=== PATIENT | female | born 2000 | race African-American/Black ===

== ENCOUNTER 2020-08-02 13:18 | Emergency (ER) | payer OTHER, SELFPAY ==
[2020-08-02] VITALS (15 sets, daily range): BP systolic 108–135; BP diastolic 60–107; PULSE 65–88; RESP 8–24; TEMP 36.9; O2SAT 98–100
--- NOTE | ~2020-08-02 | XR_ITS ---
EXAMINATION: XR chest 1V portable 08/02/2020 14:56 INDICATION: Right-sided chest pain PROCEDURE: AP portable chest COMPARISON: No prior studies for comparison. FINDINGS: The lungs are clear. The cardiomediastinal silhouette is within normal limits. There are no pleural effusions. There is no pneumothorax suspected. IMPRESSION: 1: NO ACUTE CARDIOPULMONARY DISEASE. Reviewed, dictated and finalized at location B.
--- NOTE | 2020-08-02 14:00 | ECG_ITS ---
Measurements Intervals [place] Rate: 68 P: 47 TN: 135 QRS: 74 QRSD: 81 T: 54 QT: 399 QTc: 426 Interpretive Statements SINUS RHYTHM WITH SINUS ARRHYTHMIA NORMAL ECG Electronically Signed On 08-02-2020 14:28:51 CDT by Senthil Herron D.O.
[2020-08-02 14:30] LABS: Basophils Percent Auto 0.8 % (0.2-1.2); Eosinophils Percent Auto 0.6 % (0-4.4); Hematocrit 42.4 % (37.0-47.0); Hemoglobin 14.1 g/dL (12.0-15.0); Immature Granulocyte Absolute 0.01 K/mm3 (0.00-0.031); Immature Granulocyte Percent A 0.2 % (0-0.5); Lymphocytes Percent Auto 36.7 % (18.3-44.2); Mean Corpuscular HGB Conc 33.3 g/dl (32-36); Mean Corpuscular Hemoglobin 29.2 pg (26-34); Mean Corpuscular Volume 87.8 fl (80-100); Mean Platelet Volume 10.5 fl (7.4-10.4); Monocytes Absolute Auto 0.3 K/mm3 (0.1-0.6); Monocytes Percent Auto 6.9 % (2.6-8.5); Neutrophils Absolute Auto 2.7 K/mm3 (1.3-6.7); Neutrophils Percent Auto 54.8 % (45.5-73.1); Platelet Count Result 218 k/mm3 (150-375); Red Blood Count 4.83 M/mm3 (4.2-5.4); White Blood Count 4.9 K/mm3 (4.5-10.0)
[2020-08-02 14:38] LABS: Add Urine Microscopic? YES; Appearance Urine Clear (Clear); Bacteria Urine Trace /hpf; Bilirubin Urine Negative (Negative); Blood Urine Negative (Negative); Color Urine Yellow (Yellow); Glucose Urine UA Negative (Negative); Ketones Urine Negative (Negative); Leukocyte Esterase Ur Negative LEU/UL (Negative); Mucus Urine Heavy /lpf; Nitrate Urine Negative (Negative); Protein Urine 1+ mg/dL (Negative); RBC Urine 0-2 /hpf (0-2); Specific Grav Ur 1.025 (1.001-1.035); Squamous Epithelial Cell Urine Rare /hpf (Few); WBC Urine 0-3 /hpf
--- NOTE | 2020-08-02 14:41 | ED.GENADULT ---
HPI - General Adult General Chief complaint: Chest Pain Stated complaint: CP X1WK, LUMP ON NECK Time Seen by Provider: 08/02/20 13:24 Source: patient Mode of arrival: ambulatory Limitations: no limitations History of Present Illness HPI narrative: Patient presents with chief complaint of pain to right anterior chest that worsens when working, after eating and with movement for 1 week. Patient states at times it feels that the pain radiates across the midabdomen her entire chest diffusely. Patient denies sharp pain directly over her large mouth or any radiation down her left arm or into her jaw. Patient states that she was seen on campus and was prescribed omeprazole as a doubt that her symptoms may be GERD related because at times she does feel some reflux-like symptoms. Patient states that she does perform a job that requires her to do some lifting and forearm activities. Patient denies changes in vision or hearing, headache, nausea, vomiting, diarrhea, shortness of breath. Patient also reports that she has a swelling to the right side of her neck that is tender. Related Data Home Medications Medication Instructions Recorded Confirmed omeprazole 20 mg PO DAILY 08/02/20 Allergies Allergy/AdvReac Type Severity Reaction Status Date / Time No Known Allergies Allergy Verified 08/02/20 13:39 Review of Systems Review of Systems: Narrative: CONSTITUTIONAL: Denies fever, chills, or sweats. EYES: Denies visual changes, redness, or discharge. ENT: Denies rhinorrhea, congestion, sore throat, or otalgia. CARDIOVASCULAR: Reports chest wall discomfort denies palpitations, or edema. RESPIRATORY: Denies cough or dyspnea. GASTROINTESTINAL: Denies abdominal pain, nausea, vomiting, or diarrhea. GENITOURINARY: Denies dysuria or hematuria. SKIN: Denies rash or itching. MUSCULOSKELETAL: Denies back pain, joint pain, or myalgia. NEUROLOGIC: Denies headache, numbness, dizziness, or weakness. PSYCHIATRIC: Denies anxiety or depression. [facility] Past Medical History Medical History (Updated 08/02/20 @ 16:05 by Marietta Farmer PA-C) No active medical problems Social History Social History Gender identity (if verbalized by the patient): Female Exam Narrative: Exam Narrative: GENERAL: Well-appearing, well-nourished, and in no acute distress. HEAD: Normocephalic, atraumatic. EYES: PERRLA and EOMI. ENT: Nares clear, no rhinorrhea or epistaxis. Mucous membranes moist. Oropharynx without tonsillar hypertrophy exudate or other lesions. Bilateral TMs pearly chacon nonbulging NECK: Supple. Sized right-sided posterior cervical lymph node that is mobile and tender to palpation. No carotid bruits or JVD CHEST: Pain reproducible with palpation of patient's pectoral muscles. Clear to auscultation. No respiratory distress. No wheezes rales or rhonchi HEART: Regular rate and rhythm. No murmur heard. Normal peripheral pulses. ABDOMEN: Soft, nontender, nondistended, normal active bowel sounds. EXTREMITIES: Normal range of motion. No edema. SKIN: Warm, dry, no rash. NEURO: No focal deficits. Alert and oriented x3. PSYCH: Normal mood and affect. Course Vital Signs Vital signs: Vital Signs Temperature 98.5 F 08/02/20 13:29 Pulse Rate 79 08/02/20 13:29 Respiratory Rate 16 08/02/20 13:29 Blood Pressure 108/60 08/02/20 13:29 Pulse Oximetry 100 08/02/20 13:29 Temperature 98.5 F 08/02/20 13:29 Pulse Rate 68 08/02/20 15:16 Respiratory Rate 13 08/02/20 15:16 Blood Pressure 118/71 08/02/20 15:15 Pulse Oximetry 100 08/02/20 15:12 Medical Decision Making MDM Narrative Medical decision making narrative: Patient is resting comfortably in the bed. Her vitals are stable. Her discomfort has resolved with Toradol. Patient will be prescribed naproxen. Patient's pain is likely musculoskeletal as it can be reproduced with palpation of the pectoral muscles. Patient instructed to follow-up with her primary care for roger
[2020-08-02 14:43] LABS: Alanine Aminotransferase 8 U/L (4-35); Albumin Level 4.5 g/dL (3.7-5.6); Alkaline Phosphatase 77 U/L (45-116); Anion Gap 8 mmol/L (8-16); Aspartate Amino Transferase 22 U/L (14-36); Bilirubin,Total 0.9 mg/dL (0.2-1.3); Blood Urea Nitrogen 9 mg/dL (8-21); Calcium 9.6 mg/dL (8.9-10.7); Carbon Dioxide 28 mmol/L (22-30); Chloride 103 mmol/L (98-107); Estimated CRCL calculation 83 ml/min; Estimated Glomerular Filt Rate > 60; Glucose 88 mg/dL (65-105); Sodium 139 mmol/L (134-143)
[2020-08-02 14:53] LABS: Troponin I < 0.012 ng/mL (0.000-0.034)
[2020-08-02] MEDS: KETOROLAC 15 MG/ML VIAL (*BKC) IV PUSH (15:14)
== END 2020-08-02 16:28 | disposition home or self-care (01) ==
PROVIDERS: Physician Assistant; Emergency Provider Emergency Medicine
DX: R07.89 Other chest pain (principal)
CPT/HCPCS: 36415; 71045; 80053; 81001; 81025; 84484; 85025; 93005; 96374; 99284; J1885

== ENCOUNTER → 2022-07-11 14:10 | Outpatient (CLI) | payer OTHER, SELFPAY ==
--- NOTE | ~2022-07-11 | US_ITS ---
EXAMINATION: US pelvic complete w TV DATE: 07/11/2022 14:46 INDICATION: Pelvic pain. Abnormal bleeding. Comparison:No prior studies for comparison. TECHNIQUE: Multiple transabdominal and endovaginal sonographic images of the pelvis performed. FINDINGS: The uterus measures 7.6 x 4 x 4.5 cm. The endometrial complex measures 7 mm. The right ovary measures 3.7 x 1.8 x 2.4 cm and the left ovary measures 4.9 x 4.3 x 4 cm. There is a 4 cm left ovarian cyst. There are small follicles in each ovary. Normal doppler signal in both ovarie s. There is free fluid in the pelvis. There are no abnormal masses seen on either side. IMPRESSION: 1. Left ovarian cyst measuring 4 cm. Reviewed, dictated and finalized at location B.
== END ==
PROVIDERS: PCP Nurse Practitioner Psychiatric/Mental Health; Visit Provider Nurse Practitioner Psychiatric/Mental Health
DX: N83.202 Unspecified ovarian cyst, left side (principal)
CPT/HCPCS: 76830; 76856

== ENCOUNTER 2024-01-06 15:36 | Emergency (ER) | payer OTHER, SELFPAY ==
[2024-01-06 15:52] VITALS: BP 143/55; PULSE 92; RESP 16; TEMP 37.6; O2SAT 100
--- NOTE | 2024-01-06 16:31 | ED.GENADULT ---
HPI - General Adult General Chief complaint: Extremity Injury, Lower Stated complaint: left foot irritated,may have glass in it Source: patient Mode of arrival: ambulatory Limitations: no limitations History of Present Illness HPI narrative: patient presents for evaluation of left foot discomfort. She indicates she accidentally stepped on a shards of glass about a month ago. She thought she managed to remove all of the fragments. Persistent pain in the plantar section of her left foot made her suspect that there is still retained glass fragment present. No fever, chills, redness, or drainage from the affected area. Date of last tetanus unknown. She is not diabetic. She states pain is mild however she wanted to ensure that there were no complications she needed to worry about. Related Data Allergies Allergy/AdvReac Type Severity Reaction Status Date / Time No Known Allergies Allergy Verified 01/06/24 15:38 Review of Systems Review of Systems: CONSTITUTIONAL: Denies fever, chills, or sweats. EYES: Denies visual changes, redness, or discharge. ENT: Denies rhinorrhea, congestion, sore throat, or otalgia. CARDIOVASCULAR: Denies chest pain, palpitations, or edema. RESPIRATORY: Denies cough or dyspnea. GASTROINTESTINAL: Denies abdominal pain, nausea, vomiting, or diarrhea. GENITOURINARY: Denies dysuria or hematuria. SKIN: Reports concern of possible retained glass shard in left foot. MUSCULOSKELETAL: Reports pain in left heel. NEUROLOGIC: Denies headache, numbness, dizziness, or weakness. PSYCHIATRIC: Denies anxiety or depression. COUNTS INCLUDE 234 BEDS AT THE [facility] Past Medical History Medical History No active medical problems No pertinent past medical history Surgical History Surgical History No pertinent past surgical history Family History Family History (Updated 01/06/24 @ 16:37 by RADHA Lou, ) Mother Family history non-contributory Social History Social History Smoking status: Never smoker Substance use: never Gender identity (if verbalized by the patient): Female Sexual Orientation (if Verbalized by the Patient): Straight or Heterosexual Spiritual care concerns: No Exam Narrative: GENERAL: Well-appearing, well-nourished, and in no acute distress. HEAD: Normocephalic, atraumatic. EYES: PERRLA and EOMI. ENT: Nares clear, no rhinorrhea or epistaxis. Mucous membranes moist. Oropharynx without tonsillar hypertrophy exudate or other lesions. Bilateral TMs pearly chacon nonbulging NECK: Supple. No adenopathy or masses. No carotid bruits or JVD CHEST: Clear to auscultation. No respiratory distress. No wheezes rales or rhonchi HEART: Regular rate and rhythm. No murmur heard. Normal peripheral pulses. ABDOMEN: Soft, nontender, nondistended, normal active bowel sounds. EXTREMITIES: Normal range of motion. No edema. there is mild tenderness noted in the plantar aspect of the left heel SKIN: I do not appreciate any were erythema, wounds, or palpable masses in the left foot NEURO: No focal deficits. Alert and oriented x3. PSYCH: Normal mood and affect. Course Course Emergency Course: This is a 23-year-old female who presented for evaluation of left heel pain. She has concerns that she may have a retained glass shard in the left heel. I do not appreciate any palpable masses. There is no evidence of infection. I informed patient that x-ray may or may not show retained foreign body however would likely not be in her best interest for me to attempt to remove it even in the event that one were present. I did offer her an x-ray which she declined. I recommended that she follow up with Podiatry. In the event that she has retained glass shard, her body may reject it or it may be encapsulated. I provided her with this guidance. Give
[2024-01-06] MEDS: TETANUS,DIPHTHERIA,AC PERTUSSIS ADULT (0.5 ML) BOOSTRIX IM (16:32)
== END 2024-01-06 16:42 | disposition home or self-care (01) ==
PROVIDERS: Emergency Provider Nurse Practitioner
DX: M25.572 Pain in left ankle and joints of left foot (principal); S91.332A Puncture wound without foreign body, left foot, initial encounter; W25.XXXA Contact with sharp glass, initial encounter; Z23 Encounter for immunization
CPT/HCPCS: 90471; 90715; 99212; G0463